=== PATIENT | female | born 1940 | race Caucasian/White ===

== ENCOUNTER 2022-06-01 14:47 | Inpatient (IN) | payer BC ==
[~2022-06-01] VITALS: Ht 149.9 cm; Wt 52.6 kg
[2022-06-01] MEDS ORDERED: ONDANSETRON 4 MG/2 ML VIAL IVP ONE (14:55)
[2022-06-01] MEDS ORDERED: NACL 0.9% 1,000 ML IV ONE (14:55)
--- NOTE | 2022-06-01 16:34 | NUR ---
RAD AT BEDSIDE
--- NOTE | 2022-06-01 16:42 | NUR ---
ASSUMED PATIENT CARE, NURSING ASSESSMENT COMPLETED.
[2022-06-01 16:45] LABS: ALBUMIN 2.2 g/dL (3.4-5.0); ANION GAP 26.4 (8-16); ASPARTATE AMINOTRANSFERASE 90 U/L (15-37); CARBON DIOXIDE 12.6 mmol/L (21-32); CHLORIDE 105 mmol/L (98-107); CREATININE 1.7 mg/dL (0.6-1.3); GLUCOSE 167 mg/dL (74-106); LIPASE 20 U/L (73-393); SODIUM SERUM 141 mmol/L (136-145); TOTAL BILIRUBIN 0.6 mg/dL (0.0-1.0); UREA NITROGEN, BLOOD 26 mg/dL (7-18)
[2022-06-01 16:49] LABS: HEMATOCRIT 35.6 % (36-48); HEMOGLOBIN 11.6 g/dL (12.0-16.0); MEAN CORPUSCULAR HEMOGLOBIN 29 pg (27-31); MEAN CORPUSCULAR HGB CONC 33 g/dL (33-37); MEAN CORPUSCULAR VOLUME 88.8 fL (80-94); PLATELET COUNT (AUTO) 138 K/uL (140-450); RED BLOOD CELL COUNT(AUTO) 4.02 MIL/uL (4.20-5.40); RED CELL DISTRIBUTION WIDTH 25.1 % (11.6-13.7)
[2022-06-01 17:33] LABS: LYMPHOCYTES % (MANUAL) 8 % (20-46); MONOCYTES % (MANUAL) 3 % (5-12)
[2022-06-01] MEDS ORDERED: MONT-72 PO (19:02)
[2022-06-01] MEDS ORDERED: METF-1139 PO (19:02)
[2022-06-01] MEDS ORDERED: FLUT1DSK2 IH (19:02)
[2022-06-01] MEDS ORDERED: SPIMDI INH (19:02)
[2022-06-01] MEDS ORDERED: LEVO0.155 PO (19:02)
[2022-06-01] MEDS ORDERED: ALBU0.0912 INH (19:02)
[2022-06-01] MEDS: NACL 0.9% 1,000 ML IV SCH (21:00)
--- NOTE | 2022-06-01 21:07 | NUR ---
REPORT GIVEN TO JOHNATHAN BHATT
--- NOTE | 2022-06-01 21:13 | NUR ---
Patient will be admitted to care of [facility]. Admited to TELE. Will go to [id number]. Belongings list completed. Report to NAM BHATT.
--- NOTE | 2022-06-01 21:20 | NUR ---
PT WAS ADMITTED TO [facility] FROM ER THRU [facility] WITH DIAGNOSIS OF GASTRIC OUTLET OBSTRUCTION. PT IS AOX4, AMBULATORY WITH ASSIST, ABLE TO VERBALIZE NEEDS AND ABLE TO FOLLOW COMMANDS. PT HAS IV ON RIGHT AC GAUGE 20, SALINE LOCK. PT IS ON NPO AND ON ROOM AIR. PT SKIN IS INTACT. PT DENIES PAIN AT THIS TIME. NO S/S OF RESPIRATORY DISTRESS NOTED. PT WAS ORIENTED TO HOSPITAL/ROOM AND BED BUTTONS. ALL SAFETY MEASURES IMPLEMENTED. BED WHEELS ON LOCK, BED IN LOW POSITION AND CALL LIGHT WITHIN REACH.
[2022-06-02] VITALS: BP 103/58
--- NOTE | 2022-06-02 00:21 | NUR ---
NOTIFIED DR. JESSICA THAT PT REFUSED ON NGT INSERTION, K LEVEL OF 3 AND HISTORY OF DM. WILL WAIT FOR DR. JESSICA ORDER.
--- NOTE | 2022-06-02 00:46 | NUR ---
DR. JESSICA ORDER RISS AND LOLA [id number]. ORDER WAS MADE AND CARRIED OUT.
[2022-06-02] MEDS ORDERED: INSULIN LISPRO SLIDING SCALE 100 UNITS/ML VIAL SUBQ PRN (01:30)
[2022-06-02] MEDS ORDERED: KCL 20 MEQ IN 100 mL PREMIX 200 ML IV ONE (02:00)
--- NOTE | 2022-06-02 02:10 | NUR ---
K-RIDER 40 MEQ WAS GIVEN TO PT PER MD ORDER. ALL SAFETY MEASURES IMPLEMENTED. BED WHEELS ON LOCK, BED IN LOW POSITION AND CALL LIGHT WITHIN REACH.
[2022-06-02 04:00] VITALS: BP 92/56
[2022-06-02] MEDS: NACL 0.9% 1,000 ML IV SCH ×3 (05:00→21:00)
--- NOTE | 2022-06-02 06:24 | NUR ---
NOTIFIED DR. JESSICA THAT PT IS HARDSTICK ON IV. TRIED IT MANY TIMES BUT STILL CANT GET IT. ASKING DOCTOR FOR MIDLINE. WILL WAIT FOR THE MD RESPONSE.
[2022-06-02] MEDS: BLOOD GLUCOSE MONITORING 1 DEV DEV FS SCH ×4 (06:42→21:04)
--- NOTE | 2022-06-02 06:42 | NUR ---
PT REFUSED FOR 2 UNITS HUMALOG DUE TO BLOOD GLUCOSE OF 169. EDUCATED THE PT BUT STILL REFUSED IT.
--- NOTE | 2022-06-02 07:15 | NUR ---
PT IS STABLE. ENDORSED PT TO MORNING SHIFT NURSE FOR CONTINUITY OF CARE.
--- NOTE | 2022-06-02 07:30 | NUR ---
RECEIVED REPORT FROM VALVE ASSEMBLER NURSE FOR CONTINUITY OF CARE, PT ON ROOM AIR WITH CHEST RISING AND FALLING EVEN AND UNLABORED. PT REFUSED NG TUBE, NO IV ACCESS, MD AWARE OF BOTH. MIDLINE ORDER, PENDING CONSENT. ALL SAFETY MEASURES IN PLACE, CALL LIGHT WITHIN REACH.
[2022-06-02 08:00] VITALS: BP 101/60
--- NOTE | 2022-06-02 08:04 | NUR ---
SPOKE WITH PT REGARDING POC, PT STATES SHE DOES NOT HAVE AN OBSTRUCTION. PT BECAME AGITATED AND UNCOOPERATIVE REFUSING ASSESSMENT OR TO DISCUSS POC. INFORMED PT DR STATED PT NEEDS MIDLINE DUE TO BEING HARD STICK, PT STATES SHE DOES NOT WANT THE "LONG CATHETER". STATES SHE WANTS TO TALK TO
--- NOTE | 2022-06-02 09:11 | NUR ---
PATIENT HAS BEEN SCREENED AND CATEGORIZED MODERATE NUTRITION RISK. PATIENT WILL BE SEEN WITHIN 3-5 DAYS OF ADMISSION. REVIEWED BY AALIYAH MANUEL RD
--- NOTE | 2022-06-02 10:12 | NUR ---
ASSISTED PT IN CALLING WILLIAMS ON PTS PERSONNEL PHONE, ONCE PT WAS FINISHED, THE CELL PHONE WAS PLACED IN PTS PERSONAL BELONGINGS AT BEDSIDE.
[2022-06-02] MEDS ORDERED: ALBUTEROL SULFATE/IPRATROPIU 3 ML SOL IH PRN (10:25)
--- NOTE | 2022-06-02 11:50 | NUR ---
IV ABLE TO BE PLACED TO LEFT AC 20G. PATENT AND INTACT. IV FLUIDS RUNNING AT 125.
[2022-06-02 12:00] VITALS: BP 101/55
--- NOTE | 2022-06-02 12:00 | NUR ---
PT REFUSING BLOOD GLUCOSE CHECK, EDUCATED ON IMPORTANCE OF CHECKING DUE TO HX AND NPO STATUS. PT STATES SHE "DOES NOT WANT TO BE BOTHERED RIGHT NOW"
--- NOTE | 2022-06-02 14:30 | NUR ---
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 SW REQUESTED PERMISSION TO OUTREACH TO EC TO GATHER COLLAT INFO, PT REFUSED AND STATED "DO NOT CALL ANY OF MY FAMILY". SW TO FOLLOW AT
[2022-06-02] MEDS: ALBUTEROL SULFATE/IPRATROPIU 3 ML SOL IH SCH ×2 (15:31→20:27)
[2022-06-02] MEDS ORDERED: ACETAMINOPHEN 325 MG TAB PO PRN (15:40)
[2022-06-02] MEDS ORDERED: ONDANSETRON 4 MG/2 ML VIAL IVP PRN (15:40)
[2022-06-02] MEDS ORDERED: HYDROcodone/APAP 7.5/325 MG 1 TAB PO PRN (15:40)
[2022-06-02 16:00] VITALS: BP 98/56
--- NOTE | 2022-06-02 18:05 | NUR ---
PT REFUSED BLOOD GLUCOSE CHECK, EDUCATED ON IMPORTANCE WITH HER BEING NPO. PT STATES SHE DOES NOT WANT IT RIGHT NOW.
--- NOTE | 2022-06-02 18:43 | NUR ---
LAB CALLED STATING PT IS REFUSING LAB DRAW
--- NOTE | 2022-06-02 18:48 | NUR ---
RUSS (COUSIN) NUMBER PROVIDED TO DR JESSICA PER PTS REQUEST FOR A FULL UPDATE TO BE PROVIDED.
--- NOTE | 2022-06-02 19:05 | NUR ---
RECEIVED PATIENT, ASLEEP, IN NO ACUTE DISTRESS, NO SIGNS OF PAIN NOTED, CALL LIGHT WITHIN REACH, BED IN LOW AND LOCKED POSITION.
[2022-06-02 20:00] VITALS: BP 111/55
[2022-06-02] MEDS ORDERED: NON-FORMULARY ITEM (Metformin HCl* (Glucophage Xr*) 1 TAB) PO SCH (21:00)
[2022-06-02] MEDS ORDERED: DOCUSATE SODIUM 100 MG GELCAP PO SCH (21:00)
[2022-06-02] MEDS ORDERED: NON-FORMULARY ITEM (Tiotropium Bromide* (Spiriva Mdi*) 1 CAP) INH SCH (21:00)
--- NOTE | 2022-06-02 21:04 | NUR ---
PATIENT'S BLOOD SUGAR IS 125 MG/DL, NO INSULIN COVERAGE NEEDED.
[2022-06-03] VITALS: BP 101/51
[2022-06-03] MEDS: NACL 0.9% 1,000 ML IV SCH (01:20)
--- NOTE | 2022-06-03 02:43 | NUR ---
CHECKED ON PATIENT, PATIENT IS ASLEEP, NO SIGNS OF DISTRESS NOTED, NO SIGNS OF PAIN/DISCOMFORT NOTED. CALL LIGHT WITHIN REACH, BED IN LOW AND LOCKED POSITION.
[2022-06-03 04:00] VITALS: BP 102/49
--- NOTE | 2022-06-03 05:33 | NUR ---
PATIENT WAS FOUND UNRESPONSIVE, MANOLO KIM CALLED. THIS STAFF CALLED PALMIRA MCBRIDE TWICE LEFT MESSAGE, CALLED RUSS SALOMON, UNABLE TO LEAVE MESSAGE. PALMIRA MCBRIDE CALLED @0605 WAS NOTIFIED OF PATIENT BEING FOUND UNRESPONSIVE, THAT MANOLO KIM WAS CALLED BUT UNABLE TO REVIVE THE PATIENT, OFFERED CONDOLENCES, PATIENT HAS NOT DECIDE ON WHICH MORTUARY. DR. JESSICA WAS NOTIFIED @0601. [facility] WAS CALLED @0619 AND TUNNEL [facility]ILN FIRER'S OFFICE @ 0640.
--- NOTE | 2022-06-03 05:54 | NUR ---
0533 CODE BLUE CALLED. CPR AND BAGGING STARTED.ACLS DRUGS GIVEN. PT INTUBATED WITH 7.5 TUBE AT 25 LIP. CO2 DETECTOR CHANGED COLOR. PT AT 0551
[2022-06-03] MEDS ORDERED: LEVOTHYROXINE 0.075 MG TAB PO SCH ×2 (06:30→09:00)
--- NOTE | 2022-06-03 07:37 | NUR ---
GOT REPORT FROM THE NIGHT NURSE, THE BODY IN BED [id number]
[2022-06-03] MEDS ORDERED: PANTOPRAZOLE 40 MG INJ VIAL IVP SCH (09:00)
[2022-06-03] MEDS ORDERED: MONTELUKAST SODIUM 10 MG TAB PO SCH (09:00)
[2022-06-03 09:06] LABS: TRANSFERRIN 158 mg/dL (149-313)
[2022-06-03 17:48] LABS: FERRITIN 420 ng/mL (15 - 150)
== END 2022-06-03 19:15 | DRG 380 ==
LOC: MED 14:47 → MTU 20:24 → MMU 06-03 11:30
PROVIDERS: ADMIT Family Medicine; ATTEND Family Medicine
PROC: 0BH17EZ Insertion of Endotracheal Airway into Trachea, Via Natural or Artificial Opening (ICD-10-PCS; principal; 2022-06-03)
PROC: 5A12012 Performance of Cardiac Output, Single, Manual (ICD-10-PCS; 2022-06-03)
DX: K31.1 Adult hypertrophic pyloric stenosis (principal); E43 Unspecified severe protein-calorie malnutrition; J90 Pleural effusion, not elsewhere classified; N17.9 Acute kidney failure, unspecified; K31.89 Other diseases of stomach and duodenum; D64.9 Anemia, unspecified; Z20.822 Contact with and (suspected) exposure to COVID-19; E87.6 Hypokalemia; E86.0 Dehydration; I46.9 Cardiac arrest, cause unspecified; E11.65 Type 2 diabetes mellitus with hyperglycemia; E83.51 Hypocalcemia; Z68.23 Body mass index [BMI] 23.0-23.9, adult; I48.91 Unspecified atrial fibrillation; K21.9 Gastro-esophageal reflux disease without esophagitis; Z79.899 Other long term (current) drug therapy
CPT/HCPCS: 31500; 36415; 71045; 80053; 82607; 82728; 82746; 82948; 83036; 83540; 83690; 83880; 84484; 85025; 85045; 87081; 92950; 93005; 94640; 96361; 96374; 99285; J1815; J2405; J3480; Q0092; Q9967